=== PATIENT | female | born 1980 | race Caucasian/White ===

== ENCOUNTER → 2020-04-29 | Outpatient (CLI) | payer BC, OTHER ==
[~2020-04-29] MED LIST: JOLESSA 0.15 M1 EACH PO
== END ==
LOC: KOH-I 09:00
DX: M54.2 Cervicalgia (principal); R22.1 Localized swelling, mass and lump, neck; M50.321 Other cervical disc degeneration at C4-C5 level; M48.02 Spinal stenosis, cervical region; M25.78 Osteophyte, vertebrae
CPT/HCPCS: 72050; 72125

== ENCOUNTER → 2020-06-22 | Outpatient (CLI) | payer BC, OTHER | LOC: KOH-I 08:38 | DX: M50.122 Cervical disc disorder at C5-C6 level with radiculopathy (principal); M50.11 Cervical disc disorder with radiculopathy, high cervical region; M47.22 Other spondylosis with radiculopathy, cervical region; M48.02 Spinal stenosis, cervical region | CPT/HCPCS: 72141 ==

== ENCOUNTER → 2020-07-21 | Outpatient (CLI) | payer BC, OTHER ==
[2020-07-21 13:28] LABS: RED BLOOD COUNT 4.38 M/UL (4.00-5.10); WHITE BLOOD COUNT 5.7 K/UL (4.5-11.0)
[2020-07-21 13:52] LABS: BUN/CREATININE RATIO 13 (0-10)
== END ==
LOC: OPSV2 12:30
PROVIDERS: Orthopaedic Surgery
DX: Z01.818 Encounter for other preprocedural examination (principal); M54.12 Radiculopathy, cervical region
CPT/HCPCS: 36415; 71046; 80048; 81001; 85027; 85610; 85730; 87077; 87081; 87086; 87186; 93005

== ENCOUNTER 2020-08-08 06:14 | Day surgery (SDC) | payer BC, OTHER ==
[~2020-08-08] VITALS: Ht 167.6 cm; Wt 63.5 kg
[2020-08-09 05:19] LABS: HEMOGLOBIN 12.1 gm/dl (12.3-15.3); RED BLOOD COUNT 4.09 M/UL (4.00-5.10); WHITE BLOOD COUNT 10.6 K/UL (4.5-11.0)
[2020-08-09 05:41] LABS: BUN/CREATININE RATIO 11 (0-10)
== END 2020-08-09 11:17 | disposition home or self-care (01) ==
LOC: OR 06:14 → CCU 10:30 → OR 08-09 11:17
PROVIDERS: Orthopaedic Surgery
PROC: 0RB30ZZ Excision of Cervical Vertebral Disc, Open Approach (ICD-10-PCS; 2020-08-08)
PROC: 0PS304Z Reposition Cervical Vertebra with Internal Fixation Device, Open Approach (ICD-10-PCS; 2020-08-08)
PROC: 0RG10A0 Fusion of Cervical Vertebral Joint with Interbody Fusion Device, Anterior Approach, Anterior Column, Open Approach (ICD-10-PCS; principal; 2020-08-08 07:30)
DX: M48.02 Spinal stenosis, cervical region (principal); M54.12 Radiculopathy, cervical region; G99.2 Myelopathy in diseases classified elsewhere; F17.210 Nicotine dependence, cigarettes, uncomplicated; Z20.822 Contact with and (suspected) exposure to COVID-19; Z88.1 Allergy status to other antibiotic agents; Z79.899 Other long term (current) drug therapy
CPT/HCPCS: 72040; 72050; 76000; 80048; 84703; 85027; 86850; 86900; 86901; 97116-GP-CQ; 97161; 97166; C1713; C1762; C1781; J0690; J1040; J1100; J1170; J2001; J2250; J2405; J2704; J2710; J3010; J3370; J7040; J7120